=== PATIENT | female | born 1945 | race African-American/Black ===

== ENCOUNTER 2023-01-20 15:55 | Outpatient (CLI) | payer MEDICARE, SELFPAY ==
[2023-01-20 19:30] LABS: Alanine Aminotransferase 21 U/L (6-35); Albumin Level 4.3 g/dL (3.5-5.1); Alkaline Phosphatase 66 U/L (38-126); Anion Gap 5 mmol/L (8-16); Aspartate Amino Transferase 53 U/L (14-36); Bilirubin,Total 0.4 mg/dL (0.2-1.3); Blood Urea Nitrogen 15 mg/dL (7-17); Calcium 9.8 mg/dL (8.4-10.2); Carbon Dioxide 31 mmol/L (22-30); Chloride 102 mmol/L (98-107); Estimated Glomerular Filt Rate 58; Glucose 100 mg/dL (65-110); Potassium 4.1 mmol/L (3.4-5.0); Sodium 138 mmol/L (137-145)
[2023-01-20 21:03] LABS: Hemoglobin A1C 5.9 % (<5.7)
== END 2023-01-20 15:56 | disposition home or self-care (01) ==
LOC: ANHGOSHLAB 15:57
PROVIDERS: PCP Family Medicine; Visit Provider Family Medicine
DX: E11.9 Type 2 diabetes mellitus without complications (principal)
CPT/HCPCS: 36415; 80053; 83036

== ENCOUNTER → 2023-02-23 11:22 | Outpatient (CLI) | payer MEDICARE, SELFPAY ==
--- NOTE | ~2023-02-23 | DEXA_ITS ---
Bone Density Report Name: SUZANNE LUZ Age: 77 Sex: Female Ethnicity: Black Date of : 1945 Indication: postmenopausal; screening for osteoporosis; hysterectomy; Referring Provider: LORIE BERNARDO Study: Bone densitometry was performed. Exam Date: February 23, 2023 Accession number: [id number] Bone Density: Region BMD T-score Z-score Classification AP Spine (L1-L4) 0.991 -0.5 1.5 Normal Femoral Neck (Left) 0.888 0.4 1.3 Normal Total Hip (Left) 1.048 0.9 1.6 Normal Femoral Neck (Right) 0.933 0.8 1.6 Normal Total Hip (Right) 1.062 1.0 1.7 Normal Total Hip Mean 1.055 1.0 1.7 Normal World Health Organization criteria for BMD impression classify patients as: Normal (T-score at or above -1.0), Osteopenia (T-score between -1.0 and -2.5), or Osteoporosis (T-score at or below -2.5). 10-year Fracture Risk: FRAX not reported because: All T-scores for Spine Total, Hip Total, Femoral Neck at or above -1.0 Clinical Information Provided by Patient: Has used the following medications: Vitamin D, MTV Has the following medical conditions: Hysterectomy Patient maximum height was 68.0 Menopause Age: 26 No regular weight bearing exercise Drinks caffeinated beverages Onset of menses at age 10 Number of children 2 Impression: The patient has normal bone mass. Discussion: BONE DENSITY IS ABOVE THE MINIMUM DESIRABLE LEVEL AT ALL SKELETAL SITES TESTED. This patient?s bone mineral density is above the minimum desirable level (T-score -1.0 or better) at all sites measured. The patient should follow a healthful lifestyle (good nutrition with adequate calcium and vitamin D, and appropriate weight-bearing exercise). Follow-Up: Consider repeating this study in 5 years or sooner if there is some new clinical indication. Reported by: DC on 02/23/2023 12:00:00 PM. Reviewed, dictated and finalized at location [facility]ish[facility] MARR
== END ==
PROVIDERS: PCP Nurse Practitioner Family; Visit Provider Nurse Practitioner Family
DX: Z78.0 Asymptomatic menopausal state (principal)
CPT/HCPCS: 77080

== ENCOUNTER 2023-03-24 16:22 | Emergency (ER) | payer MEDICARE, SELFPAY ==
--- NOTE | ~2023-03-24 | XR_ITS ---
EXAM: XR shoulder RT min 2V DATE: 03/24/2023 17:18 HISTORY: pain no fall/injury . COMPARISON: None available. FINDINGS: Normal mineralization. No fracture or dislocation. No lytic or blastic lesion. Mild AC enrique nt and moderate glenohumeral joint osteoarthritis. Calcific rotator cuff tendinitis. Subacromial narr owing. No erosion or periosteal change. Soft tissues within normal limits. IMPRESSION: No acute osseous finding in the right shoulder. Reviewed, dictated and finalized at location K. [employer]
--- NOTE | 2023-03-24 16:38 | ED.UPPEXIN ---
HPI - Extremity Injury (Upper) General Chief Complaint: Extremity Injury, Upper <Melissa Lopez APRN - Last Filed: 03/24/23 16:42> Stated Complaint: R. arm pain <Melissa Lopez APRN - Last Filed: 03/24/23 16:42> Time Seen by Provider: 03/25/23 00:20 <Melissa Lopez APRN - Last Filed: 03/24/23 16:42> Source: patient and EMS <Melissa Lopez APRN - Last Filed: 03/24/23 16:42> Mode of arrival: EMS <Melissa Lopez APRN - Last Filed: 03/24/23 16:42> Limitations: no limitations <Melissa Lopez APRN - Last Filed: 03/24/23 16:42> History of Present Illness HPI narrative: Patient is a 77-year-old female who presents emergency department via EMS today for evaluation of pain to the right shoulder/upper arm without any known injury. Symptoms started today. States she went to the urgent care and they advised her to come here to make sure it was not her heart. She states that they said that in a woman it could be the heart even though it is on the right side and also wants to rule out a blood clot. She denies any history of DVT. Denies any recent long periods of travel. Denies any traumatic injury to the arm. States that she has had tingling/numbness sensation in the arm at times not taking anything for the discomfort she does not take medicine. denies CP, sob, dizziness, headache, n/v, swelling to the RUE, redness, rash, or any other symptoms. <Melissa Lopez APRN - Last Filed: 03/24/23 16:42> Related Data Home Medications: Home Medications Medication Instructions Recorded Confirmed cholecalciferol (vitamin D3) 25 25 mcg PO DAILY 10/26/19 02/16/23 mcg (1,000 unit) capsule dorzolamide 2 % eye drops 1 drop ophthalmic (eye) TID 10/26/19 02/16/23 latanoprost 0.005 % eye drops 1 drop ophthalmic (eye) QPM 10/26/19 02/16/23 [id number] 8 mg-folic 400 1 tablet PO DAILY 10/26/19 02/16/23 mcg-K 50 mcg-lutein 300 mcg tablet (Centrum Silver Women) <Melissa Lopez APRN - Last Filed: 03/24/23 16:42> Allergies/Adverse Reactions: Allergies Allergy/AdvReac Type Severity Reaction Status Date / Time Tetanus Vaccines and Toxoid Allergy Unknown local Verified 02/16/23 10:39 swelling 2006 <Melissa Lopez APRN - Last Filed: 03/24/23 16:42> Review of Systems Review of Systems: CONSTITUTIONAL: Denies fever, chills, or sweats. CARDIOVASCULAR: Denies chest pain, palpitations, or edema. RESPIRATORY: Denies cough or dyspnea. GASTROINTESTINAL: Denies abdominal pain, nausea, vomiting, or diarrhea. SKIN: Denies rash or itching. MUSCULOSKELETAL:RUE shoulder/upper arm pain with tingling sensation at times. NEUROLOGIC: Denies headache unilateral weakness. <Melissa Lopez APRN - Last Filed: 03/24/23 16:42> All systems reviewed & are unremarkable except as noted in HPI and below <Melissa Lopez APRN - Last Filed: 03/24/23 16:42> [facility] Past Medical History Medical History: Medical History Cyst of ovary, right Obesity (BMI 30.0-34.9) <Melissa Lopez APRN - Last Filed: 03/24/23 16:42> Surgical History Surgical History: Surgical History H/O: hysterectomy (~1971) <Melissa Lopez APRN - Last Filed: 03/24/23 16:42> Family History Family History: Family History Sibling Family history of glaucoma Breast cancer Mother Cerebrovascular accident Hypertension Grandparent Breast cancer Son Hypertension Other Family history of cardiovascular disease <Melissa Lopez APRN - Last Filed: 03/24/23 16:42> Social History Social History: Social History Smoking status: Never smoker Second hand tobacco smoke exposure: No Alcohol intake: never Substance use: never Substance use type: does not use Lack of Transporta
[2023-03-24 16:39] VITALS: BP 128/62; PULSE 56; RESP 16; TEMP 36.3; O2SAT 100
[2023-03-24 17:16] LABS: Basophils Percent Auto 0.7 % (0.2-1.2); Eosinophils Absolute Auto 0.1 K/mm3 (0-0.3); Eosinophils Percent Auto 1.7 % (0-4.4); Hematocrit 41.1 % (37.0-47.0); Hemoglobin 13.1 g/dL (12.0-15.0); Immature Granulocyte Absolute 0.01 K/mm3 (0.00-0.031); Immature Granulocyte Percent A 0.2 % (0-0.5); Lymphocytes Absolute Auto 1.99 K/mm3 (0.9-3.2); Lymphocytes Percent Auto 43.3 % (18.3-44.2); Mean Corpuscular HGB Conc 31.9 g/dl (32-36); Mean Corpuscular Hemoglobin 28.2 pg (26-34); Mean Corpuscular Volume 88.4 fl (80-100); Mean Platelet Volume 10.3 fl (7.4-10.4); Monocytes Absolute Auto 0.5 K/mm3 (0.1-0.6); Monocytes Percent Auto 10.4 % (2.6-8.5); Neutrophils Percent Auto 43.7 % (45.5-73.1); Platelet Count Result 192 k/mm3 (150-375); Red Blood Count 4.65 M/mm3 (4.2-5.4); Red Cell Distribution Width 14.5 % (11.5-14.5); White Blood Count 4.6 K/mm3 (4.5-10.0)
[2023-03-24 17:25] LABS: Alanine Aminotransferase 21 U/L (6-35); Albumin Level 4.1 g/dL (3.5-5.1); Alkaline Phosphatase 69 U/L (38-126); Anion Gap 8 mmol/L (8-16); Aspartate Amino Transferase 29 U/L (14-36); Bilirubin,Total 0.4 mg/dL (0.2-1.3); Blood Urea Nitrogen 17 mg/dL (7-17); Calcium 9.6 mg/dL (8.4-10.2); Carbon Dioxide 28 mmol/L (22-30); Chloride 104 mmol/L (98-107); Estimated Glomerular Filt Rate > 60; Glucose 91 mg/dL (65-110); Potassium 3.4 mmol/L (3.4-5.0); Sodium 140 mmol/L (137-145)
[2023-03-24 17:30] LABS: Prothrombin Time 13.5 Seconds (11.1-14.7)
[2023-03-24 17:32] LABS: D Dimer 0.99 ug/mL (<0.48)
[2023-03-24 17:37] LABS: Troponin I < 0.012 ng/mL (0.000-0.034)
[2023-03-24 22:51] VITALS: BP 153/67; PULSE 61; RESP 16; O2SAT 100
[2023-03-25 00:56] VITALS: BP 128/68; PULSE 60; RESP 12; TEMP 36.7; O2SAT 99
== END 2023-03-25 00:57 | disposition home or self-care (01) ==
PROVIDERS: Nurse Practitioner; Emergency Provider Emergency Medicine; PCP Family Medicine
DX: M25.511 Pain in right shoulder (principal)
CPT/HCPCS: 36415; 73030; 80053; 84484; 85025; 85380; 85610; 99283

== ENCOUNTER 2023-11-20 11:41 | Outpatient (CLI) | payer MEDICARE, SELFPAY ==
[2023-11-20 14:24] LABS: Alanine Aminotransferase 16 U/L (6-35); Albumin Level 4.2 g/dL (3.5-5.1); Alkaline Phosphatase 64 U/L (38-126); Anion Gap 9 mmol/L (4-12); Aspartate Amino Transferase 66 U/L (14-36); Bilirubin,Total 0.5 mg/dL (0.2-1.3); Blood Urea Nitrogen 18 mg/dL (7-17); Calcium 9.8 mg/dL (8.4-10.2); Carbon Dioxide 30 mmol/L (22-30); Chloride 100 mmol/L (98-107); Estimated Glomerular Filt Rate 58; Glucose 101 mg/dL (65-110); Potassium 3.8 mmol/L (3.4-5.0); Sodium 139 mmol/L (137-145)
[2023-11-20 15:30] LABS: Hepatitis B Surface Antigen Negative (Negative)
[2023-11-20 15:36] LABS: HAV RESULT Negative (Negative); Hepatitis B Core IgM Result Negative (Negative)
[2023-11-20 15:48] LABS: Hepatitis C Virus Antibody Negative (Negative)
== END 2023-11-20 11:42 | disposition home or self-care (01) ==
PROVIDERS: PCP Family Medicine; Visit Provider Family Medicine
DX: R74.8 Abnormal levels of other serum enzymes (principal); R73.02 Impaired glucose tolerance (oral); R73.03 Prediabetes; D05.10 Intraductal carcinoma in situ of unspecified breast; I88.9 Nonspecific lymphadenitis, unspecified; R74.01 Elevation of levels of liver transaminase levels
CPT/HCPCS: 36415; 80053; 80074; 83036

== ENCOUNTER 2024-07-18 14:07 | Emergency (ER) | payer MEDICARE, SELFPAY ==
[2024-07-18 14:15] VITALS: BP 144/74; PULSE 61; RESP 16; TEMP 36.5; O2SAT 100
--- NOTE | 2024-07-18 14:15 | ECG_ITS ---
Test Date: 2024-07-18 14:23:22 Measurements Intervals [place] Rate: 56 P: 61 HI: 174 QRS: -14 QRSD: 109 T: 35 QT: 419 QTc: 405 Interpretive Statements SINUS BRADYCARDIA INCOMPLETE RIGHT BUNDLE BRANCH BLOCK BORDERLINE ECG No previous ECG available for comparison Electronically Signed On 07-18-2024 15:49:52 CDT by Ronny Nixon D.O.
--- NOTE | 2024-07-18 14:57 | ED.CHESTPAIN ---
HPI - Chest Pain General Chief Complaint: Chest Pain Stated Complaint: chest pain Time Seen by Provider: 07/18/24 14:40 Source: patient and RN notes reviewed Mode of arrival: ambulatory Limitations: no limitations History of Present Illness HPI narrative: 79-year-old female presents Express Care complaining of chest pain. Patient stated started about 45 minutes ago. Patient states that the pain is sharp and pinching sensation that is midsternal more on the left side of her chest. She denies doing anything when the chest pain started. She says the pain comes and goes and that it is worse with left arm movement or palpating her chest. She also reports that she has this left arm dullness in her left upper arm. She denies any shortness of breath, chest pain with exertion, dizziness, lightheadedness, palpitations, syncope, leg swelling, nausea, vomiting. Patient says he has a family history of heart disease but she denies her having a heart history. She does have a history of prediabetes and hypertension. Related Data Home Medications ?Medication ?Instructions ?Recorded ?Confirmed ?Last Taken ?Type cholecalciferol (vitamin D3) 25 25 mcg PO DAILY 10/26/19 07/18/24 Unknown History mcg (1,000 unit) capsule dorzolamide 2 % eye drops 1 drop ophthalmic (eye) TID 10/26/19 07/18/24 Unknown History latanoprost 0.005 % eye drops 1 drop ophthalmic (eye) QPM 10/26/19 07/18/24 Unknown History Allergies Allergy/AdvReac Type Severity Reaction Status Date / Time Tetanus Vaccines and Toxoid Allergy Unknown local Verified 07/18/24 14:15 swelling 2007 adhesive tape AdvReac Mild skin rash Verified 07/18/24 14:15 Review of Systems Review of Systems: CONSTITUTIONAL: Denies fever, chills, or sweats. EYES: Denies visual changes, redness, or discharge. ENT: Denies rhinorrhea, congestion, sore throat, or otalgia. CARDIOVASCULAR: Positive for chest pain and left arm pain. Negative for palpitations, syncope, lightheadedness, dizziness or edema. RESPIRATORY: Denies cough or dyspnea. GASTROINTESTINAL: Denies abdominal pain, nausea, vomiting, or diarrhea. GENITOURINARY: Denies dysuria or hematuria. SKIN: Denies rash or itching. MUSCULOSKELETAL: Denies back pain, joint pain, or myalgia. NEUROLOGIC: Denies headache, numbness, or weakness. PSYCHIATRIC: Denies anxiety or depression. All other systems reviewed are negative, except as documented in HPI. [facility] Past Medical History Medical History Breast cancer Obesity (BMI 30.0-34.9) Cyst of ovary, right Surgical History Surgical History H/O partial mastectomy H/O lumpectomy H/O: hysterectomy (~1971) Family History Family History Sibling Family history of glaucoma Breast cancer Mother Cerebrovascular accident Hypertension Grandparent Breast cancer Son Hypertension Other Family history of cardiovascular disease Social History Social History Smoking status: Never smoker Second hand tobacco smoke exposure: No Alcohol intake: never Substance use: never Substance use type: does not use Lack of Transportation: No Lack of Food: Never True Current Housing: I Do Not Have Housing Concerned About Future Housing: No Difficulty Paying Gas/Electric Bills: No Difficulty Paying for Meds: No Currently Unemployed: No Education: Associate Degree Difficulty w/ Childcare or Family Care: No Living arrangements: with family Occupation/Education: retired Gender identity (if verbalized by the patient): Female Spiritual care concerns: No Agree to blood products: Yes Comments At the time of my signature, I reviewed and agree with the nursing past medical, surgical, social, and family history. There is no relevant family history pertinent to the patient complaint. Exam Narrative: GENERAL: This is a well-nourished, well-developed adult, in no apparent distress. They are non ill-appearing, nontoxic appearing. HEAD: normocephalic, atraumatic. EYES: Sclera clear/white. Vision is grossly intact. Extraocular movements intact EARS: External ears normal, Hearing grossly intact. NOSE: External nose normal THROAT: Mucous membranes moist NECK: Neck supple, non-tender without lymphadenopathy, masses or thyromegaly. No carotid bruit bilaterally. CARDIOVASCULAR: Regular rate and rhythm without murmurs, gallops, or rubs. CHEST WALL: Tenderness to palpation to the left medial sternal wall. No swelling, deformity, or paradoxical movements present. RESPIRATORY: Clear to auscultation. Breath sounds equal bilaterally. No wheezes, rales, or rhonchi. SKIN: warm, Dry, intact with no suspicious lesions or rash, good texture and turgor. NEURO: awake, alert, and oriented to person, place and time. There were no obvious focal neurologic abnormalities. EXTREMITIES: No joint tenderness, effusion. Trace edema to bilateral lower extremities noted. Course Course Emergency Course: Patient is aware of diagnosis, understands and agrees to treatment plan. Patient to go immediately to [facility] Emergency Department for further evaluation. Portions of this record may have been created with voice recognition software Level of Care: Express Care Visit Vital Signs Vital signs: Vital Signs Temperature 97.7 F 07/18/24 14:15 Pulse Rate 61 07/18/24 14:15 Respiratory Rate 16 07/18/24 14:15 Blood Pressure 144/74 H 07/18/24 14:15 Pulse Oximetry 100 07/18/24 14:15 Oxygen Delivery Room Air 07/18/24 14:15 Temperature 97.7 F 07/18/24 14:15 Pulse Rate 61 07/18/24 14:15 Respiratory Rate 16 07/18/24 14:15 Blood Pressure 144/74 H 07/18/24 14:15 Pulse Oximetry 100 07/18/24 14:15 Oxygen Delivery Room Air 07/18/24 14:15 Reviewed Transfer Transfered to: [facility] Transportation: Other (Private vehicle) Transfer rationale: Patient requires higher level care and further evaluation of her chest pain. Accepting physician: Dr. Rene MDM - Chest Pain MDM Narrative Medical decision making narrative: [place] Heart score is 3 which gives her intermediate risk for coronary artery disease. EKG is sinus bradycardia without any ischemic findings. Chest pain was reproducible to palpation. However given patient's risk factors it is recommended she seek a higher level care in the emergency department for further cardiac workup. Patient was offered transfer to the closest facility and requested to go to [facility] ER. Patient is agreeable to go over to [facility] ER. Called report over to [facility] and spoke with Dominic MCMULLEN. Dr. Rene has accepted this patient for transfer to [facility]. Patient advised to remain NPO and proceed immediately to emergency department. Patient does not want an ambulance and her will drive her over via private vehicle. Patient is stable for transfer. Differential Diagnosis Differential diagnosis: Likely other (Costochondritis, acute coronary syndrome, muscle strain) ECG Data EKG #1: ECG completion date: 07/18/24 ECG completion time: 14:23 Prior ECG tracings: not available for review EKG Interpretation: bradycardia, sinus rhythm, no ectopy, no ST changes and normal QRS Critical Care Time Critical Care Time Critical Care Time: No Discharge Plan Discharge Clinical Impression: Chest pain Qualifiers: Chest pain type: unspecified Qualified Code(s): R07.9 - Chest pain, unspecified Patient Disposition: Acute Care Hospital Condition: Stable Patient Language: Mauritanian Prescriptions: No Action latanoprost 0.005 % drops 1 drop EACH EYE QPM cholecalciferol (vitamin D3) 25 mcg (1,000 unit) capsule 25 mcg PO DAILY dorzolamide 2 % drops 1 drop EACH EYE TID hydrochlorothiazide 12.5 mg capsule See Rx Instructions .ROUTE .COMPLEX Qty: 180 1RF Dose Instruction: TAKE 1 CAPSULE BY MOUTH DAILY Rx Instructions: TAKE 2 CAPSULE BY MOUTH DAILY Follow-up/Referrals: Hay Vegas MD [Primary Care Provider] - Time of Disposition: 14:57
== END 2024-07-18 15:08 | disposition short-term general hospital (02) ==
PROVIDERS: PCP Family Medicine
DX: R07.9 Chest pain, unspecified (principal); I10 Essential (primary) hypertension; R73.03 Prediabetes; E66.9 Obesity, unspecified; Z68.31 Body mass index [BMI] 31.0-31.9, adult; Z85.3 Personal history of malignant neoplasm of breast; Z90.11 Acquired absence of right breast and nipple
CPT/HCPCS: 93005; 93010; 99213; G0463

== ENCOUNTER 2024-10-06 18:40 | Emergency (ER) | payer MEDICARE, SELFPAY ==
--- NOTE | ~2024-10-06 | XR_ITS ---
XR foot LT min 3V Ordering provider: Yoan Mendez APRN History: . injury, deep laceration to DIP of 5th digit . Comparison: None. FINDINGS: BONES: Fracture at the base of the proximal phalanx of the little toe is seen medially. JOINT SPACES: Narrowing of the proximal and distal interphalangeal joints. Osteoarthritic changes of the first metatarsophalangeal joint. No tarsal coalition. SOFT TISSUES: Normal. IMPRESSION: Fracture at the base of the proximal phalanx of the little toe. Reviewed, dictated and finalized at location A.
[2024-10-06 18:56] VITALS: BP 166/69; PULSE 64; RESP 16; TEMP 36.5; O2SAT 100
[2024-10-06] MEDS: LIDOCAINE 1% LOCAL INJ 2 ML AMPUL 4 ML INFILTRATE (19:50)
--- NOTE | 2024-10-06 20:47 | ED.LOWEXIN ---
HPI - Extremity Injury (Lower) General Chief Complaint: Extremity Injury, Lower Stated Complaint: Injured Left Foot Time Seen by Provider: 10/06/24 19:00 Source: patient and RN notes reviewed Mode of arrival: ambulatory Limitations: no limitations History of Present Illness HPI Narrative: 79-year-old female Presents Express Care complaining of injury to left foot. Patient reports she was getting out of her chair when she tripped over left foot and fell on her left side. Patient reports when she fell she sliced the little toe on the chair. Patient denies hitting her head, headaches, vision changes, nausea, vomiting, dizziness, lightheadedness, loss of consciousness, neck pain, back pain, or any other injuries. Patient states her tetanus is not today because she says she has an allergy to it. Patient states she is prediabetic. Related Data Home Medications ?Medication ?Instructions ?Recorded ?Confirmed ?Last Taken ?Type cholecalciferol (vitamin D3) 25 25 mcg PO DAILY 10/26/19 10/06/24 Unknown History mcg (1,000 unit) capsule dorzolamide 2 % eye drops 1 drop ophthalmic (eye) TID 10/26/19 10/06/24 Unknown History latanoprost 0.005 % eye drops 1 drop ophthalmic (eye) QPM 10/26/19 10/06/24 Unknown History multivitamin (Daily Multi-Vitamin 1 tablet PO DAILY 10/06/24 10/06/24 Unknown History tablet) Allergies Allergy/AdvReac Type Severity Reaction Status Date / Time Tetanus Vaccines and Toxoid Allergy Unknown local Verified 10/06/24 18:49 swelling 2007 adhesive tape AdvReac Mild skin rash Verified 10/06/24 18:49 Review of Systems Review of Systems: CONSTITUTIONAL: Denies fever, chills, or sweats. EYES: Denies visual changes, redness, or discharge. ENT: Denies rhinorrhea, congestion, sore throat, or otalgia. CARDIOVASCULAR: Denies chest pain, palpitations, loss of consciousness, dizziness, lightheadedness or edema. RESPIRATORY: Denies cough or dyspnea. GASTROINTESTINAL: Denies abdominal pain, nausea, vomiting, or diarrhea. GENITOURINARY: Denies dysuria or hematuria. SKIN: Denies rash, wound, or itching. Positive for laceration. MUSCULOSKELETAL: Denies back pain, neck pain, joint pain, or myalgia. Positive for left foot injury NEUROLOGIC: Denies headache, numbness, or weakness. PSYCHIATRIC: Denies anxiety or depression. All other systems reviewed are negative, except as documented in HPI. [facility] Past Medical History Medical History Breast cancer Obesity (BMI 30.0-34.9) Cyst of ovary, right Surgical History Surgical History H/O partial mastectomy H/O lumpectomy H/O: hysterectomy (~1971) Family History Family History Sibling Family history of glaucoma Breast cancer Mother Cerebrovascular accident Hypertension Grandparent Breast cancer Son Hypertension Other Family history of cardiovascular disease Social History Social History Smoking status: Never smoker Second hand tobacco smoke exposure: No Alcohol intake: never Substance use: never Substance use type: does not use Lack of Transportation: No Lack of Food: Never True Current Housing: I Do Not Have Housing Concerned About Future Housing: No Difficulty Paying Gas/Electric Bills: No Difficulty Paying for Meds: No Currently Unemployed: No Education: Associate Degree Difficulty w/ Childcare or Family Care: No Living arrangements: with family Occupation/Education: retired Gender identity (if verbalized by the patient): Female Spiritual care concerns: No Agree to blood products: Yes Comments At the time of my signature, I reviewed and agree with the nursing past medical, surgical, social, and family history. There is no relevant family history pertinent to the patient complaint. Exam Narrative: GENERAL: This is a well-nourished, well-developed adult, in no apparent distress. They are non ill-appearing, nontoxic appearing. HEAD: normocephalic, atraumatic. EYES: Sclera clear/white. Vision is grossly intact. Conjunctiva normal. Extraocular movement intact. EARS: External ears normal Hearing grossly intact. NOSE: External nose normal THROAT: Mucous membranes moist NECK: Neck supple CARDIOVASCULAR: Regular rate and rhythm RESPIRATORY: Respiratory rate normal, respiratory effort nonlabored, no respiratory distress NEURO: awake, alert, and oriented to person, place and time. There were no obvious focal neurologic abnormalities. EXTREMITIES: Left foot: No obvious deformity, swelling, bruising, redness. Nontender through full range of motion. Tenderness to palpation to the left lower toe. Capillary refill less than 3 seconds. Left pedal Pulse 2 +palpable. Normal sensation. Neurovascular status intact distal injury. Patient is able to wiggle her toes. There is a 2 cm laceration to the plantar surface the left little toe, laceration is curved, approximate well and goes into the subcutaneous tissue. No bony tissue visualized. Hemostasis is achieved with direct pressure. Neurovascular status intact distal laceration. Patient can feel me touch the tip of her left little toe. Cap refill less than 2 seconds the left little toe. BACK: Nontender without deformity. Course Course Emergency Course: Portions of this record may have been created with voice recognition software Level of Care: Express Care Visit Vital Signs Vital signs: Vital Signs Temperature 97.7 F 10/06/24 18:56 Pulse Rate 64 10/06/24 18:56 Respiratory Rate 16 10/06/24 18:56 Blood Pressure 166/69 H 10/06/24 18:56 Pulse Oximetry 100 10/06/24 18:56 Temperature 97.7 F 10/06/24 18:56 Pulse Rate 64 10/06/24 18:56 Respiratory Rate 16 10/06/24 18:56 Blood Pressure 166/69 H 10/06/24 18:56 Pulse Oximetry 100 10/06/24 18:56 Reviewed Procedures Laceration Laceration 1: Date: 10/06/24 Time: 19:45 Site: lower extremity (Left little toe.) Side (If applicable): left Size (cm): 2 Description: irregular Depth: simple, single layer Local Anesthetic: lidocaine 1% Amount of anesthesia used (mL): 3 Pre-repair: wound explored and irrigated extensively ====== Skin Level ====== Skin layer closed with: nylon Size (cm): 5-0 Number of sutures: 9 Technique: simple, interrupted ====== Subcutaneous Layer ====== ====== Muscle Layer ====== ====== Tendon Layer ====== Dressing: nonadherent Orthopedic Splinting/Casting Injury #1: Splinting/Casting Date: 10/06/24 Splinting/Casting Time: 20:30 Side: left Lower Extremity Injury Location: toe (Left little toe) Lower Extremity Immobilizer: post-op shoe Pre-Procedure Neuro Vascular Exam: normal Post-Procedure Neuro Vascular Exam: normal MDM - Extremity Injury (Lower) MDM Narrative Medical decision making narrative: X-ray of left foot reveals a fracture at the base proximal phalanx of the left little toe. Patient has an open fracture given the laceration to this area. Called on-call ortho and spoke with Dr. Sam about this patient who recommends a dose of Ancef, postop shoe, and oral antibiotics and will have the patient follow-up in his office. Will send patient home on cephalexin. Patient given dose of 2 g of Ancef. Patient's tetanus is not up-to-date because she said she has an allergy to it and her doctor said not to get another tetanus shot. Successful laceration repaired. Nail bed intact. Patient given postop shoe. Discussed physical exam findings. Advised supportive measures and signs/symptoms to go to the ER. Pt is appropriate for outpt treatment and f/u. Differential Diagnosis Differential diagnosis: Likely other (Laceration, abrasion, for toe fracture, open fracture, skin avulsion, foot fracture) Imaging Data Radiologist's impression: ITS Impressions Foot X-Ray 10/06/24 19:35 IMPRESSION: Fracture at the base of the proximal phalanx of the little toe. Critical Care Time Critical Care Time Critical Care Time: No Discharge Plan Discharge Clinical Impression: Laceration of toe Qualifiers: Encounter type: initial encounter Toe: lesser toe Damage to nail status: without damage Foreign body presence: without foreign body Laterality: left Qualified Code(s): S91.115A - Laceration without foreign body of left lesser toe(s) without damage to nail, initial encounter Fracture of toe, open Qualifiers: Encounter type: initial encounter Toe: lesser toe Phalanx: proximal Fracture alignment: nondisplaced Laterality: left Qualified Code(s): S92.515B - Nondisplaced fracture of proximal phalanx of left lesser toe(s), initial encounter for open fracture Patient Disposition: Home Condition: Stable Instructions: Antibiotic Form, Care For Your Stitches (ED), Toe Fracture (ED) Additional Instructions: Yet have an open fracture to her left little toe. Your sutures need to be removed in 10-14 days. ?Wear the dressing that has been applied for the first 24 hours to allow a scab to start forming. ?After this, you may remove and wash as normal with soap and water. ?Please keep the wound dry and covered with a nonstick dressing. Do not soak prescribe the wound. Do NOT wash with peroxide or alcohol. ?Do NOT apply antibiotic ointment. ?Avoid dirty water until the wound has healed. Your given a dose antibiotics today. Take tylenol or ibuprofen at home for pain, if able. ?Please take the cephalexin as directed. Follow-up with orthopedist in 3-5 days. One has been provided for you. Follow-up with your PCP in 3-5 days as well. Please go to the ER if you are developing worsening redness, swelling, pain, drainage, fevers, numbness or tingling, blue or discolored toe or, or any other concerns. Please wear the postop shoe at all times. You may take it off to shower or when your sleeping. Patient Language: Colombian Prescriptions: New cephalexin 500 mg capsule 500 mg PO Q6H 7 Days Qty: 28 0RF No Action multivitamin [Daily Multi-Vitamin] Tablet 1 tablet PO DAILY latanoprost 0.005 % drops 1 drop EACH EYE QPM cholecalciferol (vitamin D3) 25 mcg (1,000 unit) capsule 25 mcg PO DAILY dorzolamide 2 % drops 1 drop EACH EYE TID hydrochlorothiazide 12.5 mg capsule See Rx Instructions .ROUTE .COMPLEX Qty: 180 1RF Dose Instruction: TAKE 1 CAPSULE BY MOUTH DAILY Rx Instructions: TAKE 2 CAPSULE BY MOUTH DAILY Follow-up/Referrals: Martin Sam MD [Physician] - 3 Days (open toe fracture) Hay Vegas MD [Primary Care Provider] - Time of Disposition: 20:41
== END 2024-10-06 20:46 | disposition home or self-care (01) ==
PROVIDERS: PCP Family Medicine
DX: S92.515B Nondisplaced fracture of proximal phalanx of left lesser toe(s), initial encounter for open fracture (principal); W01.198A Fall on same level from slipping, tripping and stumbling with subsequent striking against other object, initial encounter; R73.03 Prediabetes; E66.9 Obesity, unspecified; Z85.3 Personal history of malignant neoplasm of breast; Z68.30 Body mass index [BMI] 30.0-30.9, adult
CPT/HCPCS: 12001; 73630; 96372; 99214; G0463; J0690; J2003

== ENCOUNTER 2024-10-09 10:03 | Emergency (ER) | payer MEDICARE, SELFPAY ==
[2024-10-09 10:45] VITALS: BP 130/68; PULSE 63; RESP 16; TEMP 36.2; O2SAT 98
--- NOTE | 2024-10-09 10:46 | ED.WOUNDLAC ---
HPI - Wound/Laceration General Chief Complaint: Wound/Laceration Stated Complaint: WOUND CHECK Time Seen by Provider: 10/09/24 10:15 Source: patient and RN notes reviewed Mode of arrival: ambulatory Limitations: no limitations History of Present Illness HPI narrative: Patient presents today requesting a wound check of her left 5th toe. Three days ago she presented to [facility] with an open fracture of her 5th toe your. Her laceration was repaired, but patient states she has not been able to reach the toe to change the dressings as instructed. She has been taking the Keflex as prescribed. She has not yet called to make a follow-up visit with Orthopedics. Related Data Home Medications ?Medication ?Instructions ?Recorded ?Confirmed ?Last Taken ?Type cholecalciferol (vitamin D3) 25 25 mcg PO DAILY 10/26/19 10/06/24 Unknown History mcg (1,000 unit) capsule dorzolamide 2 % eye drops 1 drop ophthalmic (eye) TID 10/26/19 10/06/24 Unknown History latanoprost 0.005 % eye drops 1 drop ophthalmic (eye) QPM 10/26/19 10/06/24 Unknown History multivitamin (Daily Multi-Vitamin 1 tablet PO DAILY 10/06/24 10/06/24 Unknown History tablet) Allergies Allergy/AdvReac Type Severity Reaction Status Date / Time Tetanus Vaccines and Toxoid Allergy Unknown local Verified 10/09/24 10:29 swelling 2007 adhesive tape AdvReac Mild skin rash Verified 10/09/24 10:29 PMFSH Past Medical History Medical History Breast cancer Obesity (BMI 30.0-34.9) Cyst of ovary, right Surgical History Surgical History H/O partial mastectomy H/O lumpectomy H/O: hysterectomy (~1971) Family History Family History Sibling Family history of glaucoma Breast cancer Mother Cerebrovascular accident Hypertension Grandparent Breast cancer Son Hypertension Other Family history of cardiovascular disease Social History Social History Smoking status: Never smoker Second hand tobacco smoke exposure: No Alcohol intake: never Substance use: never Substance use type: does not use Lack of Transportation: No Lack of Food: Never True Current Housing: I Do Not Have Housing Concerned About Future Housing: No Difficulty Paying Gas/Electric Bills: No Difficulty Paying for Meds: No Currently Unemployed: No Education: Associate Degree Difficulty w/ Childcare or Family Care: No Living arrangements: with family Occupation/Education: retired Gender identity (if verbalized by the patient): Female Spiritual care concerns: No Agree to blood products: Yes Comments At time of signature, I have reviewed and agree with nursing past medical, surgical, social and family history unless otherwise noted. Please see nursing chart for further information. There is no relevant family history pertinent to the presenting complaint Exam Narrative: GENERAL: Well-appearing, well-nourished, and in no acute distress. HEAD: Normocephalic, atraumatic. EYES: EOMI. No redness or drainage. Conjunctivae normal. ENT: Mucous membranes pink and moist. NECK: Normal AROM. CHEST: No respiratory distress. EXTREMITIES: Left foot: Dressings removed. All sutures intact around the plantar aspect of the 5th toe. No erythema, drainage, or other signs of bacterial infection noted. Distal sensation intact. SKIN: Warm, dry, no rash. Capillary refill normal. Normal skin turgor. NEURO: No focal deficits. Alert and oriented x3. Gait steady. PSYCH: Normal affect. No signs of depression or anxiety. Course Course Emergency Course: Wound cleansed. New dressing applied. Level of Care: Express Care Visit Vital Signs Vital signs: Vital Signs Temperature 97.1 F L 10/09/24 10:45 Pulse Rate 63 10/09/24 10:45 Respiratory Rate 16 10/09/24 10:45 Blood Pressure 130/68 10/09/24 10:45 Pulse Oximetry 98 10/09/24 10:45 Temperature 97.1 F L 10/09/24 10:45 Pulse Rate 63 10/09/24 10:45 Respiratory Rate 16 10/09/24 10:45 Blood Pressure 130/68 10/09/24 10:45 Pulse Oximetry 98 10/09/24 10:45 Reviewed MDM - Wound/Laceration MDM Narrative Medical decision making narrative: 79-year-old female patient presents for a wound check. Open fracture sustained 3 days ago with wound repair. Patient taking antibiotics as prescribed. Dressing removed and wound cleansed. Wound appears without any signs of infection. Redressed. Long discussion with patient regarding ways that she can care for her own wound at home including washing it with her hand-held shower head and air drying. Cut some dressings for her to replace at home easily. Ensured that patient can reach her foot with it crossed across her other leg. Urged patient to call Orthopedics on Thursday to schedule a follow-up visit. Vital signs stable. Differential Diagnosis Differential diagnosis: Likely laceration, abscess and other (Cellulitis) Critical Care Time Critical Care Time Critical Care Time: No Discharge Plan Discharge Clinical Impression: Visit for wound check Patient Disposition: Home Condition: Stable Additional Instructions: Please clean your wound daily with soap and water, dry it thoroughly, and redressed as shown. You may keep the dressing on that has been placed today for 24 hours. Continue the antibiotics. Please call Dr. Sam's office tomorrow morning and schedule a follow-up visit. Your blood pressure was elevated above 120/80 today at Urgent Care. This puts you above the threshold for follow up. Please schedule a followup visit with your personal physician as soon as possible, for further evaluation and treatment. Even blood pressure exceeding 120/80 may indicate pre-hypertension. Patient Language: Hebrew Prescriptions: No Action multivitamin [Daily Multi-Vitamin] Tablet 1 tablet PO DAILY cephalexin 500 mg capsule 500 mg PO Q6H 7 Days Qty: 28 0RF latanoprost 0.005 % drops 1 drop EACH EYE QPM cholecalciferol (vitamin D3) 25 mcg (1,000 unit) capsule 25 mcg PO DAILY dorzolamide 2 % drops 1 drop EACH EYE TID hydrochlorothiazide 12.5 mg capsule See Rx Instructions .ROUTE .COMPLEX Qty: 180 1RF Dose Instruction: TAKE 1 CAPSULE BY MOUTH DAILY Rx Instructions: TAKE 2 CAPSULE BY MOUTH DAILY Follow-up/Referrals: Martin Sam MD [Physician] - Hay Vegas MD [Primary Care Provider] - Time of Disposition: 10:46
== END 2024-10-09 10:50 | disposition home or self-care (01) ==
PROVIDERS: Emergency Provider Nurse Practitioner; PCP Family Medicine
DX: Z48.01 Encounter for change or removal of surgical wound dressing (principal); E66.9 Obesity, unspecified; Z68.29 Body mass index [BMI] 29.0-29.9, adult; Z85.3 Personal history of malignant neoplasm of breast; Z90.10 Acquired absence of unspecified breast and nipple
CPT/HCPCS: 99212; G0463

== ENCOUNTER 2024-12-01 15:52 | Outpatient (CLI) | payer MEDICARE, SELFPAY ==
--- NOTE | ~2024-12-01 | XR_ITS ---
XR hip RT 2V w AP pelvis 12/01/2024 16:08 Indication: Hip pain Procedure: 3 views right hip Comparison: No prior studies for comparison. Findings: Severe osteoarthritis of the right hip. No fracture, subluxation or dislocation. No soft tissue abnormality. No foreign bodies. Impression: 1: Severe osteoarthritis of the right hip. Reviewed, dictated and finalized at location O. Impression: 1: Severe osteoarthritis of the right hip.
--- OUTSIDE RECORDS SUMMARY | 2024-12-01 15:55 | XMS_ITS ---
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 Past Treatment and Therapy Plans No past plan information found. Radiation Treatments * Course [id number] - 09/24/2023 Treatment Period Energy Fraction Dose Fractions Total Dose Plans Planned Ethos RT BRST 09/24/2023 - 09/24/2023 2,000 1 / 2,000 Reference Points Delivered [id number] 09/24/2023 - 09/24/2023 2,000
--- OUTSIDE RECORDS SUMMARY | 2024-12-01 15:55 | XMS_ITS | Clinical Summary ---
Author Organization [facility] Address [address] [place] [address] Care Team Providers Care Public Aid Eligibility Assistant Name Role Phone Hay Vegas MD Primary Care Provider [phone] Elisabet Melchor MD Unavailable [phone] Jaky Matt MD Unavailable Razia Saini NP Unavailable Allergies Active Allergy Reactions Criticality Noted Date Comments Lobster Nausea & Vomiting Low 2023 Stomach pain Tetanus Vaccines And Toxoid Swelling Reaction: swelling, Medications hydroCHLOROthia zide (MICROZIDE) 12.5 mg capsule take 1 Tablet by oral route every day 0 0 4 Active multivitamin tablet tablet take 1 Tablet by oral route every day with food 0 0 6 Active dorzolamide (TRUSOPT) 2 % ophthalmic solution Administer 1 drop into both eyes 2 (two) times a day Active latanoprost (XALATAN) 0.005 % ophthalmic solution INSTILL 1 DROP IN BOTH EYES EVERY EVENING Active cholecalciferol (VITAMIN D-3) 1,000 unit Take 1 tablet/capsule (1,000 Units total) by mouth daily 6 Active acetaminophen (TYLENOL) 325 mg tablet Take 2 tablets (650 mg total) by mouth every 6 (six) hours as needed for pain Active Active Problems Problem Noted Date Diagnosed Date History of breast cancer 05/27/2024 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 Cancer Staging:Pathologic stage from 07/27/2023:Stage 0(pTis (DCIS), pN0, cM0, G2, ER+, IL: Not Assessed, HER2: Not Assessed) - Unsigned Clinical stage from 05/20/2023:Stage 0(cTis (DCIS), cN0, cM0, G1, ER+, IL: Not Assessed, HER2: Not Assessed) - Unsigned Postconcussion syndrome 01/17/2016 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 Primary angle-closure glaucoma 12/28/2014 Cataract of both eyes 07/24/2010 Hypertension 06/25/2010 Diabetes mellitus 06/25/2010 Immunizations Immunization Administration Dates Next Due COVID-19 mRNA (Ouner) 0.3 m L (30 mcg) vaccine (12 years and up) 02/25/2023 Influenza, Quadrivalent, Hig h Dose, Preservative Free, Intrr 01/14/2020 Influenza, Quadrivalent, Rec ombinant, Egg Free, Preservative Free, Intramuscular 01/12/2019 Influenza, Trivalent, High D ose, Split, Preservative Free, Intramuscular 04/05/2018,05/01/2017 Moderna SARS-CoV-2 Monovalent Vaccination (12+ Y RS) 06/07/2020,05/10/2020 RSV Vaccine, Pref, Recombina nt, Subunit, Adjuvanted, PF, IM (Arexvy) 04/17/2023 Surgical History Surgery Date Site/Laterality Comments HYSTERECTOMY 1972 Hysterectomy OTHER SURGICAL HISTORY Abnormal EKG: BREAST LUMPECTOMY Right benign BREAST BIOPSY 05/20/2023 Right COLONOSCOPY Medical History Medical History Date Comments Glaucoma 2013 Glaucoma Adiposity 2010 Obesity Hx Other Medical 2009 Vitamin D Defic iency Hx Other Medical 2007 Lactose Intoler ance Hypertension 2007 Hypertension Hx Other Medical 2007 Prediabetes Hx Other Medical 2006 Reflux Esophagi tis Hx Other Medical 2013 Abnormal EKG 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 - (Added by TW Conv) Arthritis Heart murmur Mitral valve prolapse Breast cancer (HCC) Family History Medical History Relation Name Comments Glaucoma Brother 1 Family history of glaucoma - (Added by TW Conv) Prostate cancer Brother 1 Blindness Brother 2 Family history of blindness - (Added by TW Conv) Prostate cancer Brother 2 Breast cancer Father's Sister Anesthesia problems Grandchild delayed emergence, hx 20+ surgeries Hypertension Mother Hypertension; Stroke Mother Stroke; Hypertension Other 3 Hypertension; Kidney disease Other 4 Renal disease ; Hypertension Other 5 Family history of hypertension - (Added by TW Conv) Glaucoma Other 6 Family history of glaucoma - (Added by Conv) Breast cancer Other 7 great grandmother Breast cancer Other 8 aunt Breast cancer Sister 2 Cancer, breast ; Glaucoma Sister 3 Family history of glaucoma - (Added by TW Conv) Relation Name Status Comments Brother 1 Brother 2 Father Father's Sister Grandchild Alive Mother Other 1 Alive Other 2 Alive Other 3 Other 4 Other 5 Other 6 Other 7 great grandmother Other 8 aunt Sister 1 Alive Sister 2 Sister 3 Social History Tobacco Use Types Packs/Day Years Used Date Smoking Tobacco: Never Smokeless Tobacco: Never Alcohol Use Standard Drinks/Week Comments No 0 (1 standard drink = 0.6 oz pur e alcohol) AUDIT-C Answer Date Recorded Q1: How often do you have a drink containing alcohol? Never 09/10/2023 Q2: How many drinks containi ng alcohol do you have on a typical day when you are drinking? Patient does not drink Q3: How often do you have si x or more drinks on one occasion? Never 09/10/2023 Personal Safety Answer Date Recorded Have you ever been in or are you currently in a harmful physical or emotional relationship or is someone making you feel afraid or unsafe? Denies 07/18/2024 Comments No Sex and Gender Information Value Date Recorded Sex Assigned at Not on file Legal Sex Female 3:14 AM CLERICAL OFFICE Gender Identity Not on file Sexual Orientation Not on file Obstetrics History Para Term AB IAB SAB Ectopic Multiple Livin g Live Births 2 2 2 Date Outcome GA Total Labor Labor/2nd/3rd Weight Sex Type Anes PTL Erika A1 A5 Name Clin Term Term Last Filed Vital Signs Vital Sign Reading Time Taken Comments Blood Pressure 138/73 07/18/2024 7:05 PM CDT Pulse 56 07/18/2024 7:16 PM CDT Temperature 36.9 C (98.4 F) 07/18/2024 6:14 PM CDT Respiratory Rate 17 07/18/2024 7:16 PM CDT Oxygen Saturation 99% 07/18/2024 7:16 PM CDT Inhaled Oxygen Concentration - - Weight 93 kg (205 lb) 07/18/2024 4:32 PM CDT Height 172.7 cm (5' 8) 07/18/2024 4:32 PM CDT Body Mass Index 31.17 07/18/2024 4:32 PM CDT Plan of Treatment Health Maintenance Due Date Last Done Comments Albumin Creatinine Ratio, Urine 1943 Depression Screening 1943 Hemoglobin A1C 1943 Osteoporosis Screening-Bone Density Scan 1943 Dilated Eye Exam 1943 Foot Exam 1943 Lipid Panel 1943 DTaP/Tdap/Td Vaccine (1 - Tdap) 07/13/1954 Hepatitis B Screening 07/13/1961 Pneumococcal vaccine 65+ (1 of 2 - PCV) 07/13/1962 Zoster Vaccine (1 of 2) 07/13/1993 Well Visit 65+ 07/13/2008 Covid-19 Vaccine ( - 2023-2 5 season) 2023 02/25/2023, 06/07/2020, 05/10/2020 Fall Risk Assessment 09/09/2024 09/10/2023, 07/27/19 24 Influenza Vaccine (#1) 2024 , 01/12/2019, 04/05/2018, Additional history exists eGFR 07/18/2025 07/18/2024, 08/05/2022 Medical Devices Implanted Type Area Heavy Repairer Device Identifier Shelf Expiration Date Model / Serial / Lot iFLYER Eviva 13cm Identifier Biopsy Site [id number] - [id number] Implanted:Qty: 1 on 05/20/2023 at [facility] Right: Breast [employer] [id number] 11/06/2023 [facility] IntelligenceFRANK VA-13 / / [id number] [employer] Marker Tissue Needle Delivery Spiral Capped Seed Radiopaque Animal Therapist Stainless Steel Low Nickel Sentimag [id number] - [id number] Implanted:Qty: 1 on 07/27/2023 at [facility] Right: Breast [employer] [id number] 10/27/2026 [id number] / / [id number] Procedures Procedure Name Priority Date/Time Associated Diagnosis Comments EGFR STAT 07/18/2024 4:35 PM CDT from Last 3 Months or Most Recently Relevant to Health Maintenance Results * eGFR (07/18/2024 4:35 PM CDT) eGFR 63 >=60 mL/min/1. 73 m2 Comment: Interpretive Data Reference Interval Normal >/= 90 mL/min/1.73m2 Mildly decreased* 60 - 89 mL/min/1.73m2 Mildly to moderately decreased 45 - 59 mL/min/1.73m2 Moderately to severely decreased 30 - 44 mL/min/1.73m2 Severely decreased 15 - 29 mL/min/1.73m2 Kidney Failure < 15 mL/min/1.73m2 *Relative to young adult level Estimated glomerular filtration rate is determined by the 2020 CKD-EPI equation recommended by the National Kidney Foundation (A Unifying Approach to GFR Estimation: Recommendations of the NKF-ASK Task Force on Reassessing the Inclusion of Race in Diagnosing Kidney Disease, JASN 2020). The CKD-EPI equation should not be used for patients with unstable renal function and has not been validated in children and those over 70. Current interpretive data was last reviewed 2021. Blood 07/18/2024 4:35 PM CDT 07/18/2024 4:41 PM CDT us Frank Rene MD LAB BLOOD ORDERABLES Final Res ult [facility] [place] [address] from Last 3 Months or Most Recently Relevant to Health Maintenance Insurance [facility] MEDICARE [facility] MEDIC[facility] Address: [address] [address] [place] [address] [facility] MEDICARE [facility] MEDICARE MEDICARE RES[facility] MEDICARE [facility] MEDICARE [facility] MEDICARE Care Teams Public Aid Eligibility Assistant Relationship Specialty Start Date End Date Hay Vegas MD PCP - General 08/15/13 Elisabet Melchor MD [address] [address] Surgeon Surgical Oncology 07/27/23 Jaky Matt MD [address] [id number] Radiation Oncologist Radiation Oncology 08/26/23 Razia Saini NP [address] [address] Nurse Practitioner Nurse Practitioner 09/28/23
--- OUTSIDE RECORDS SUMMARY | 2024-12-01 15:55 | XMS_ITS | Clinical Summary ---
Author Organization [facility] Address [address] [address] Care Team Providers Care Machine Tester Name Role Phone Unavailable Primary Care Provider Unavailabl e Immunizations Immunization Administration Dates Next Due (AREXVY)(60 YR UP) RSV, VIN MBINANT, PROTEIN SUBUNIT RSVPREF, ADJUVANT RECONSTITUTED, 0.5 ML, PF 04/17/2023 (COMIRNATY)(12 YR UP) COVID- 19 VACCINE, MRNA, SPIKE PROTEIN, LNP, JESSICA(PF) 30 MCG/0.3 ML IM SUSP 02/25/2023 Social History Tobacco Use Types Packs/Day Years Used Date Smoking Tobacco: Never Assessed Comments Unknown Sex and Gender Information Value Date Recorded Sex Assigned at Not on file Legal Sex Female 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
--- OUTSIDE RECORDS SUMMARY | 2024-12-01 15:55 | XMS_ITS | Clinical Summary ---
Author Organization [facility] Address [address] [place] [id number] Care Team Providers Care Surg Tech Name Role Phone Unavailable Primary Care Provider Unavailabl e Social History Tobacco Use Types Packs/Day Years Used Date Smoking Tobacco: Never Assessed Comments Unknown Sex and Gender Information Value Date Recorded Sex Assigned at Not on file Legal Sex Female 10:23 PM DISMANTLER Gender Identity Not on file Sexual Orientation Not on file Plan of Treatment Health Maintenance Due Date Last Done Comments DTaP, Tdap and Td Vaccines ( 1 - Tdap) 07/13/1962 Pneumococcal Vaccine: 50+ Ye ars (1 of 1 - PCV) 07/13/1993 Zoster Vaccines (1 of 2) 07/13/1993 Dexa Scan (General) 07/13/2008 RSV Immunization or 60+ Years (1 - 1-dose 75+ series) 07/13/2018 COVID-19 Vaccine (2023-2 5 season) 2023 Meningococcal B Vaccine Aged Out No l onger eligible based on patient's age to complete this topic Meningococcal Vaccine Aged Out No clare amanda eligible based on patient's age to complete this topic RSV Immunizations Under 20 Months Aged Out No longer eligible based on patient's age to complete this topic
--- OUTSIDE RECORDS SUMMARY | 2024-12-01 15:55 | XMS_ITS | Encounter Summary ---
Author Organization [facility] Address [address] [place] [address] Care Team Providers Care Silk Crepe Machine Operator Name Role Phone Hay Vegas MD Primary Care Provider [phone] Elisabet Melchor MD Unavailable [phone] Jaky Matt MD Unavailable Razia Saini NP Unavailable Encounter Details Date Type Department Care Team (Late st Contact Info) Description 04/02/2023 Telephone [facility] [address] [place] [id number] Katerin Jo RN Social History Tobacco Use Types Packs/Day Years Used Date Smoking Tobacco: Never Alcohol Use Standard Drinks/Week Comments No 0 (1 standard drink = 0.6 oz pur e alcohol) Personal Safety Answer Date Recorded Have you ever been in or are you currently in a harmful physical or emotional relationship or is someone making you feel afraid or unsafe? Denies 08/05/2022 Comments No Sex and Gender Information Value Date Recorded Sex Assigned at Not on file Legal Sex Female 3:[address] [employer] Gender Identity Not on file Sexual Orientation Not on file documented as of this encounter Plan of Treatment Not on file documented as of this encounter Visit Diagnoses Not on filedocumented in this encounter Care Teams Silk Crepe Machine Operator Relationship Specialty Start Date End Date aHy Vegas MD PCP - General 08/15/13 Elisabet Melchor MD [address] [address] Surgeon Surgical Oncology 07/27/23 Jaky Matt MD [address] [address] Radiation Oncologist Radiation Oncology 08/26/23 Razia Saini NP [address] [address] Nurse Practitioner Nurse Practitioner 09/28/23 documented as of this encounter
== END 2024-12-01 15:53 | disposition home or self-care (01) ==
PROVIDERS: PCP Family Medicine; Visit Provider Nurse Practitioner Family
DX: M16.11 Unilateral primary osteoarthritis, right hip (principal)
CPT/HCPCS: 73502